=== PATIENT | male | born 1965 | race Caucasian/White ===

== ENCOUNTER 2018-03-24 07:40 | Day surgery (SDC) | payer OTHER ==
[~2018-03-24] VITALS: Ht 180.3 cm; Wt 92.1 kg
--- NOTE | ~2018-03-24 | OR ---
[facility] [address] [place], [place] [address] Draft DATE OF OPERATION: 03/24/2018 SURGEON: Toney Montiel MD PREOPERATIVE DIAGNOSIS: Colon screening. POSTOPERATIVE DIAGNOSIS: Scattered diverticula of sigmoid, otherwise normal. PROCEDURE: Total colonoscopy to cecum. ANESTHESIA: Intravenous sedation with fentanyl 200 mcg and Versed 6 mg. INDICATION: This 52-year-old white man is a patient of Dr. Jenkins and has been referred for screening colonoscopy. He understands the risks of bleeding, infection, and perforation related to colonoscopy and wished to proceed. He is currently symptom free without bleeding, diarrhea, or constipation problems. He has no family history of colon cancer that is known. FINDINGS: The prep was good. Complete colonoscopy was undertaken to the cecum without question. There was scattered diverticula of the sigmoid, but the remaining colon and rectum was normal. DESCRIPTION OF PROCEDURE: The patient was brought to the endoscopy suite and placed in lateral decubitus position, given intravenous sedation to the point of slurred speech and nystagmus. Digital rectal examination was normal. An Olympus video colonoscope was passed in the rectum and manipulated throughout the colon ultimately intubating the cecum itself. The ileocecal valve was normal. The scope was withdrawn from that point and careful inspection upon withdrawal of scope showed no sign of abnormality, specifically no polyps or colitis, but did show few scattered diverticula once again in the sigmoid and left colon. Retroflexed view of the rectum was normal. Scope was removed. The patient was taken to the recovery room in good condition. PATIENT NAME: DONTE ROMAN OPERATIVE REPORT DATE OF : 69 REPORT #: [id number] PHYSICIAN: TONEY MONTIEL MD PCP: GYPSY JENKINS MD REPORT IS CONFIDENTIAL AND NOT TO BE RELEASED WITHOUT AUTHORIZATION [facility] [address] [facility] [place], [place] [address] Draft CONCLUDING DIAGNOSIS: Essentially normal colon except for a few diverticula. PLAN: Recommend high-fiber diet. Repeat in 10 years or sooner if clinically indicated. He will return to the ongoing care of Dr. Jenkins. MD JOS Sheppard/STIVENL /[id number] cc: Gypsy Jenkins MD Copies: GYPSY JENKINS MD ~ PATIENT NAME: DONTE ROMAN OPERATIVE REPORT DATE OF : 69 REPORT #: [id number] PHYSICIAN: TONEY MONTIEL MD PCP: GYPSY JENKINS MD REPORT IS CONFIDENTIAL AND NOT TO BE RELEASED WITHOUT AUTHORIZATION
[~2018-03-24 07:40] MED LIST: ACYCLOVIR800 MG PO
--- NOTE | 2018-03-24 09:45 | NUR ---
PT QUICKLY BEING PREPPED, STEPPED IN FOR A MOMENT-GREETED AND PT SEEMED PREPARED, AND HAD NO QUESTIONS. PT REQUESTED PRAYER, WILL FOLLOW NEEDED
--- NOTE | 2018-03-24 12:08 | NUR ---
03/24/18 1208 Meme Brewer 0800 PT AWAKE AND TALKING, VITALS STABLE, FIRM ABD, PT UP TO THE BR PASS GAS, PT REPORTS ABD FEELING BETTER, PT AND VERBALIZED UNDERSTANDING OF D/C INSTRUCTIONS. PAPER D/C INSTUCTIONS GIVEN TO THE PT.
== END 2018-03-24 09:30 | disposition home or self-care (01) ==
LOC: DS 07:40 → OPS 07:40
PROVIDERS: Surgery
PROC: 0DJD8ZZ Inspection of Lower Intestinal Tract, Via Natural or Artificial Opening Endoscopic (ICD-10-PCS; principal; 2018-03-24 08:30)
DX: Z12.11 Encounter for screening for malignant neoplasm of colon (principal); K57.30 Diverticulosis of large intestine without perforation or abscess without bleeding; Z87.891 Personal history of nicotine dependence; Z72.89 Other problems related to lifestyle
CPT/HCPCS: 99153; G0500; J2250; J3010; J7120

== ENCOUNTER 2025-04-16 10:29 | Day surgery (SDC) | payer OTHER ==
[~2025-04-16] VITALS: Ht 180.3 cm; Wt 91.0 kg
[~2025-04-16 10:29] MED LIST changes: +IBLOOD GLUCOSE TEST STRIP 1 EA TEST VI PRN; +LACTATED RINGER'S 1,000 ML IV SCH; +LEXAPRO10 MG PO; +LIDOCAINE HCL 1% 5 ML SDV INJ ONE; +NORVASC10 MG PO
[2025-04-16 10:39] VITALS: BP 126/83
--- NOTE | 2025-04-16 10:53 | NUR ---
FAMILY WAITING WITH PT.
[2025-04-16] MEDS ORDERED: LIDOCAINE HCL 2% 5 ML SDV ONE (12:18)
[2025-04-16 13:01] VITALS: BP 123/85
--- NOTE | 2025-04-16 14:03 | NUR ---
04/16/25 1403 Sheets,Faviola 1220 PT ARRIVED TO PACU ON RA, PT ASLEEP AND RESP EVEN AND UNLABORED. VSS. 1223 PT WAKES TO TACTILE STIMULI AND IS REORIENTED TO PACU. PT RESTING WITH NO CONCERNS. 1245 HOB INCREASED AND PT SIPPING WATER. ALL QUESTIONS ANSWERED. PT VERBALIZED UNDERSTANDING OF FOLLOW UP IN TWO WEEKS WITH PCP. 1312 PT DRESSED HIMSELF AND DC INSTRUCTIONS AND PAPERWORK WITH RX GIVEN. PT DC WITH ALL BELONGINGS TO HIS .
--- NOTE | 2025-04-20 13:27 | PATH ---
[facility] [address] [place], [place] [address] Signed SPECIMEN(S): A ANTRUM BIOPSY SPECIMEN(S): B BODY BIOPSY SPECIMEN(S): C GASTRIC BODY POLYP SPECIMEN SOURCE: A. ANTRUM BIOPSY B. BODY BIOPSY C. GASTRIC BODY POLYP CLINICAL HISTORY: History of cirrhosis of liver, prepyloric ulcer, gastritis FINAL PATHOLOGIC DIAGNOSIS: A. Gastric antrum, biopsies - Mild chronic antral gastritis, negative for active inflammation or intestinal metaplasia. - No H. pylori bacteria are detected by HE stain. B. Gastric body, biopsy - Unremarkable gastric mucosa, negative for significant inflammation or evidence of intestinal metaplasia. C. Gastric body polyp, biopsies - Fragments of benign fundic gland polyp. AMB MICROSCOPIC EXAMINATION: Histologic sections of all submitted blocks are examined by light microscopy. These findings, together with the gross examination, support the pathologic diagnosis. GROSS DESCRIPTION: A. The specimen, labeled and designated "Shawn, antrum biopsy," is received in formalin and consists of two leal soft tissue fragments, ranging from 0.2-0.3 cm. Entirely submitted in (A1). B. The specimen, labeled and designated "Escobar, gastric body biopsy," is received in formalin and consists of one leal soft tissue fragment, 0.3 cm. Entirely submitted in (B1). C. The specimen, labeled and designated "Shawn, gastric body polyp," is received in formalin and consists of three leal soft tissue fragments, ranging from 0.1-0.3 cm. Entirely submitted in (C1). VB (under the direct supervision of a pathologist) The Gross Description was prepared using a voice recognition system. The report PATIENT NAME: DONTE ESCOBAR PATHOLOGY DATE OF : 69 REPORT #: [id number] PHYSICIAN: KERRY GOODWIN PCP: TAYLOR CORRAL MD REPORT IS CONFIDENTIAL AND NOT TO BE RELEASED WITHOUT AUTHORIZATION [facility] [address] [place], [place] [address] Signed was reviewed for accuracy; however, sound-alike word errors, addition and/or deletions may occur. If there is any question about this report, please contact Client Services. ADDITIONAL NOTES: Immunohistochemical and/or in situ hybridization studies if performed in this case included appropriate positive controls that reacted as expected. This test was developed and its performance characteristics determined by [facility]. It has not been cleared or approved by the U.S. Food and Drug Administration. The FDA has determined that such clearance or approval is not necessary. This test is used for clinical purposes. It should not be regarded as investigational or for research. [facility] is certified under the Clinical Laboratory Improvement Amendments of 1988 (CLIA) as qualified to perform high complexity clinical laboratory testing. PERFORMING LABORATORY: Technical component was performed by [facility], [address] [place] [address] (CLIA# [id number]). Professional interpretation was performed by [facility] [address] [place] [id number] Diagnostician: Zena Hernandez MD Pathologist Electronically Signed 04/20/2025 Copies: ~ PATIENT NAME: DONTE ESCOBAR PATHOLOGY DATE OF : 69 REPORT #: [id number] PHYSICIAN: KERRY PATHOLOGY PCP: TAYLOR CORRAL MD REPORT IS CONFIDENTIAL AND NOT TO BE RELEASED WITHOUT AUTHORIZATION
== END 2025-04-16 13:12 | disposition home or self-care (01) ==
LOC: DS 10:29
PROVIDERS: ATTEND Surgery
PROC: 0DB78ZX Excision of Stomach, Pylorus, Via Natural or Artificial Opening Endoscopic, Diagnostic (ICD-10-PCS; principal; 2025-04-16 12:05)
DX: K70.30 Alcoholic cirrhosis of liver without ascites (principal); K29.50 Unspecified chronic gastritis without bleeding; K31.7 Polyp of stomach and duodenum; K25.9 Gastric ulcer, unspecified as acute or chronic, without hemorrhage or perforation; Z87.891 Personal history of nicotine dependence; Z79.899 Other long term (current) drug therapy; Z88.8 Allergy status to other drugs, medicaments and biological substances; Z98.52 Vasectomy status
CPT/HCPCS: 00813; 36415; 87077; J2003; J2704; J7121